=== PATIENT | female | born 1940 | race Caucasian/White ===

== ENCOUNTER → 2016-08-09 | Outpatient (CLI) | payer MEDICARE, OTHER ==
[~2016-08-09] MED LIST: ALPR.25T PO; ASP81TEC PO; ATOR80TA PO; BCL10T PO; CIPR-17 PO; CIPR1DRO2 PO; CIPR500T78 PO; COLON HEALTH PO; DICY20TA10 PO; ESCI20TA2 PO; EST45C VG; ESTR0.5T PO; HYDR-2890 PO; HYDR-3454 PO; HYDR-623 PO; HYDR118S10 PO; IBUP800T26 PO; LIPITOR; LOSA1TAB15 PO; MTP25TSR PO; NABU500T8; NITR0.4T SL; NITR100C44 PO; NTR.4SL SL; OMEG-12 PO; OXYB15TA PO; POTA8CAP9 PO; PRAS10TA6 PO; SIMV40TA4 PO; SOLI5TAB4 PO; TMZP15C PO; TRAZ150T42 PO; VLS80C
--- NOTE | 2016-08-09 18:55 | Diagnostic Imaging Report ---
INDICATION: R92.8 ABN MAMMO COMPARISON: 02/27/16. The current study was also evaluated with a Computer Aided Detection (CAD) system. FINDINGS: The medial asymmetry in the right breast appears less prominent on the current exam suggestive of summation artifact of parenchyma. Benign-appearing calcifications seen. IMPRESSION: Less prominent asymmetry along the medial aspect of the right breast is suggestive of summation artifact of parenchyma with no adverse development. Reevaluation on next screening exam due in January 2017 is suggested. ACR BI-RADS Category 2: Benign findings. Result letter will be mailed to the patient. Note: At least 10% of breast cancer is not imaged by mammography. Dictated by: Dictated on workstation # [id number]
== END | disposition home or self-care (01) ==
LOC: RAD 07:36
PROVIDERS: ATTEND Family Medicine
DX: R92.8 Other abnormal and inconclusive findings on diagnostic imaging of breast (principal)

== ENCOUNTER 2017-07-13 06:20 | Emergency (ER) | payer MEDICARE, OTHER ==
[~2017-07-13] VITALS: Ht 162.6 cm; Wt 63.0 kg
--- OUTSIDE RECORDS SUMMARY | 2017-07-13 06:24 | XMS REPORT | Continuity of Care Document ---
Author Author [employer] [facility] Address Unknown Phone Unavailable Care Team Providers Care Hall Porter Name Role Phone [employer] Unavailable Unavailable Problems Medications Allergies, Adverse Reactions, Alerts Immunizations Results Vital Signs Encounters Location Location Details Encounter Type Encounter Number Reason For Visit Attending Provider ADM Date DC Date Status Source OUTPATIENT [id number] EVE STRAUSS 10/15/2016 10/15/2016 Active [facility] OUTPATIENT [id number] Fátima VERDUGO 01/08/2017 01/08/2017 Active [facility] Michael SMART Active [facility] OP SURGERY [id number] Fátima VERDUGO Active [facility] Procedures Plan of Care Social History Assessment and Plan Family History Advance Directives Functional Status
--- OUTSIDE RECORDS SUMMARY | 2017-07-13 06:24 | XMS REPORT | Clinical Summary ---
Author Author [facility] Organization [facility] Address Unknown Phone Unavailable Care Team Providers Care Apprentice Instrument Technician Name Role Phone Sharifa Thomas MD PCP Source Comments Some departments are not documenting in the electronic medical record. If you do not see the information that you expected, contact Release of Information in the Health Information Management department at [phone] for further assistance in locating additional records.[facility] Allergies Active Allergy Reactions Severity Noted Date Comments Iodinated Contrast- Oral FLUSHING (SKIN) Low 08/29/2016 And Iv Dye Current Medications Prescription Sig. Disp. Refills Start End Date Status Date escitalopram oxalate Take 20 mg by mouth Active (LEXAPRO) 20 mg tablet daily. aspirin EC 81 mg tablet Take 81 mg by mouth Active daily. Take with food. gabapentin (NEURONTIN) Take 300 mg by mouth at Active 300 mg capsule bedtime daily. oxybutynin XL (DITROPAN Take 15 mg by mouth Active XL) 15 mg tablet daily. pantoprazole DR Take 40 mg by mouth Active (PROTONIX) 40 mg tablet daily. losartan-hydrochlorothiaz Take 0.5 Tabs by mouth Active vinayak (HYZAAR) 100-25 mg every morning. tablet atorvastatin (LIPITOR) 80 Take 80 mg by mouth at Active mg tablet bedtime daily. HYDROcodone/acetaminophen Take 1-2 Tabs by mouth 60 Tab 0 09/14/19 Active (NORCO) 5/325 mg tablet every 6 hours as needed 17 for Pain senna/docusate Take 1 Tab by mouth twice 30 Tab 0 07/14/20 Active (SENOKOT-S) 8.6/50 mg daily as needed. Take for 17 tablet constipation. Hold for loose stools. Active Problems Problem Noted Date Primary osteoarthritis of first carpometacarpal joint of right hand 2016 Overview: Added automatically from request for surgery [id number] Arthritis of right wrist 09/16/2016 Deformity of toe of right foot 08/29/2016 Social History Tobacco Use Types Packs/Day Years Used Date Former Smoker Cigarettes 10 Quit: 08/29/1996 Smokeless Tobacco: Never Used Comments: smoked 3 cigs a day Alcohol Use Drinks/Week oz/Week Comments No 0 Standard 0.0 drinks or equivalent Sex Assigned at Date Recorded Not on file Last Filed Vital Signs Vital Sign Reading Time Taken Blood Pressure 105/58 01/08/2017 2:55 PM [employer] Pulse 72 01/08/2017 2:55 PM [employer] Temperature 36.3 C (97.3 F) 09/13/2016 10:40 AM CDT Respiratory Rate - - Oxygen Saturation 98% 09/13/2016 10:45 AM CDT Inhaled Oxygen - - Concentration Weight 66.7 kg (147 lb) 01/08/2017 2:55 PM [employer] Height 162.6 cm (5' 4") 01/08/2017 2:55 PM [employer] Body Mass Index 25.23 01/08/2017 2:55 PM [employer] Plan of Treatment Health Maintenance Due Date Last Done Comments PHYSICAL (COMPREHENSIVE) 1948 EXAM PERTUSSIS VACCINE 1952 TETANUS VACCINE 1958 SHINGLES VACCINE 2001 OSTEOPOROSIS SCREENING 2006 PREVNAR/PNEUMOVAX (#1) 2006 INFLUENZA VACCINE 12/01/2017 Implants Implanted Type Area Defensive Line Coach Device Expiration Model / Identifier Date Serial / Lot Kit Instrument 100mm 1.5mm Trim-It Right: AR[employer] 05/31/2018 AR- [id number] Drill Pin Leny Bone Foot / Implanted: Qty: 1 on 09/13/2016 by N/A / Vahid Hester MD [id number] Screw Bone 30mm Acutwist Acutrak Right: [employer] [id number]-[id number] Titanium Full Thread Taper Foot / Implanted: Qty: 1 on 09/13/2016 by N/A / Vahid Hester MD N/A Results Not on filefrom Last 3 Months
[2017-07-13] MEDS ORDERED: KETOROLAC 30 MG/ML VIAL IM ONE (06:45)
--- NOTE | 2017-07-13 06:47 | ED GU-Female ---
General Chief Complaint: -Female Stated Complaint: POSS UTI Nursing Triage Note: c/o R flank pain, with urinary incontinence, urgency and retention Nursing Sepsis Screen: No Definite Risk Source: patient Exam Limitations: no limitations History of Present Illness Date Seen by Provider: July 13, 2017 Time Seen by Provider: 06:35 Initial Comments This. Ladleighton presents to the ER by private conveyance with a chief complaint that she is having dysuria for the over the past week now. She went and saw her primary care provider's office and they provided her with Bactrim which she completed a 7 day course of a couple days ago but she still feeling symptoms that she had fever yesterday 102 Fahrenheit. She was having nausea with vomiting. She has a history of kidney stones in her kidneys but she's never passed one that she is aware of. She's describing some sharp left flank pains going into her groin that she rates at about 8 out of 10. She took some Tylenol for this morning but hasn't helped yet. Records indicate she filled the Bactrim on June 20. The patient states she has a chronic amount of microscopic hematuria that she has never come up with the reason why but has had outpatient workup for. Allergies and Home Medications Allergies Coded Allergies: iodine (Verified Allergy, Unknown, 05/01/05) Uncoded Allergies: CONTRAST DYE (Allergy, Unknown, 06/09/08) Home Medications Alprazolam 0.25 Mg Tab, 0.25 MG PO Q6H PRN for ANXIETY, (Reported) NEEDED FOR ANXIETY Aspirin 81 Mg Tabec, 81 MG PO DAILY, (Reported) Hydrocodone/Acetaminophen 1 Each Tablet, 1 EACH PO Q6H PRN for PAIN Prescribed by: JOAN PETERS on 12/30/13 1127 Losartan/Hydrochlorothiazide 1 Tab Tablet, 0.5 TAB PO DAILY, (Reported) TAKE 1/2 (100-25MG) TABLET Metoprolol Succinate 25 Mg Tab, 25 MG PO DAILY Prescribed by: FER MELENDREZ on 08/28/13 1558 Nitroglycerin 0.4 Mg Tab, 0 SL PRN PRN for CHEST PAIN, (Reported) 1 TAB Q 5 MIN X 3 Oxybutynin Chloride 15 Mg Tab.osm.24, 15 MG PO DAILY, (Reported) Prasugrel Hydrochloride 10 Mg Tablet, 10 MG PO DAILY, (Reported) Simvastatin 40 Mg Tablet, 40 MG PO HS, (Reported) Trazodone Hcl 150 Mg Tablet, 75 MG PO HS, (Reported) TAKE 1/2 (150 MG) TABLET [[employer] [facility]] , 1 TAB PO DAILY, (Reported) Patient Home Medication List Home Medication List Reviewed: Yes Review of Systems Constitutional: chills, fever, malaise EENTM: No ear pain, No blurred vision Respiratory: No cough, No short of breath Cardiovascular: No palpitations, No syncope, No vascular heart diseas; other ( peripheral stents) Gastrointestinal: abdominal pain (left flank and left groin); No constipation, No diarrhea; nausea, vomiting Genitourinary: denies burning, denies discharge; dysuria, frequency, flank pain ; denies hematuria Past Rmjxuqo-Bjahfv-Nealbp Hx Patient Social History Alcohol Use: Denies Use Recreational Drug Use: No Smoking Status: Never a Smoker Recent Foreign Travel: No Contact w/Someone Who Travel: No Recent Infectious Disease Expo: No Recent Hopitalizations: No Immunizations Up To Date Date of Pneumonia Vaccine: Feb 07, 2012 Date of Influenza Vaccine: Dec 01, 2013 Past Medical History Surgeries: Yes (cervical fusion, carpal tunnel on both upper ext., umb. hernia) Hysterectomy, Orthopedic Respiratory: No Cardiac: Yes Hypertension Neurological: Yes TIA Reproductive Disorders: No Bladder Infection Gastrointestinal: No Chronic Diarrhea Musculoskeletal: Yes (OSTEOARTHRITIS, BILAT TKR) Arthritis, Chronic Back Pain Endocrine: No HEENT: No Cancer: No Psychosocial: Yes Sleep Difficulties, Anxiety, Suicide Attempts, Depression Integumentary: No Blood Disorders: No Physical Exam Vital Signs Vital Signs - First Documented 07/13/17 06:29 Temp 100.1 Pulse 86 Resp 18 B/P (MAP) 137/71 (93) Pulse Ox 95 O2 Delivery Room Air Capillary Refill : Less Than 3 Seconds General Appearance: WD/WN, no apparent distress HEENT: PERRL/EOMI, pharynx normal Neck: non-tender, supple, normal inspection Cardiovascular: normal peripheral pulses, regular rate, rhythm, no edema Respiratory: no respiratory distress, no accessory muscle use Gastrointestinal: normal bowel sounds, non tender, soft Back: normal inspection, CVA tenderness (L) Extremities: normal range of motion, non-tender, normal capillary refill Neurologic/Psychiatric: alert, normal mood/affect, oriented x 3 Skin: normal color, warm/dry Focused Exam Lactate Level 07/13/17 07:45: Lactic Acid Level 1.78 Lactic Acid Level Laboratory Tests Test 07/13/17 07:45 Lactic Acid Level 1.78 MMOL/L (0.50-2.00) Progress/Results/Core Measures Suspected Sepsis Recent Fever Within 48 Hours: Yes Infection Criteria Present: Suspected New Infection New/Unexplained Altered Menta: No Sepsis Screen: No Definite Risk SIRS Temperature:100.1 Pulse: 86 Respiratory Rate: 18 Laboratory Tests 07/13/17 07:10: White Blood Count 13.0H Blood Pressure 137 /71 Mean: 93 07/13/17 07:45: Lactic Acid Level 1.78 Laboratory Tests 07/13/17 07:10: Creatinine 1.08, Platelet Count 220, Total Bilirubin 2.0H 07/13/17 07:38: INR Comment 1.0 Results/Orders Lab Results Laboratory Tests Test 07/13/17 07:10 07/13/17 07:38 07/13/17 07:45 07/13/17 09:00 Range/Units White Blood Count 13.0 H 4.3-11.0 10^3/uL Red Blood Count 3.73 L 4.35-5.85 10^6/uL Hemoglobin 11.8 11.5-16.0 G/DL Hematocrit 36 35-52 % Mean Corpuscular Volume 95 80-99 FL Mean Corpuscular Hemoglobin 32 25-34 PG Mean Corpuscular Hemoglobin Concent 33 32-36 G/DL Red Cell Distribution Width 13.0 10.0-14.5 % Platelet Count 220 130-400 10^3/uL Mean Platelet Volume 8.9 7.4-10.4 FL Neutrophils (%) (Auto) 70 42-75 % Lymphocytes (%) (Auto) 9 L 12-44 % Monocytes (%) (Auto) 20 H 0-12 % Eosinophils (%) (Auto) 1 0-10 % Basophils (%) (Auto) 0 0-10 % Neutrophils # (Auto) 9.2 H 1.8-7.8 X 10^3 Lymphocytes # (Auto) 1.2 1.0-4.0 X 10^3 Monocytes # (Auto) 2.6 H 0.0-1.0 X 10^3 Eosinophils # (Auto) 0.1 0.0-0.3 10^3/uL Basophils # (Auto) 0.0 0.0-0.1 10^3/uL Neutrophils % (Manual) 68 % Lymphocytes % (Manual) 13 % Monocytes % (Manual) 18 % Eosinophils % (Manual) 1 % Blood Morphology Comment NORMAL Sodium Level 139 135-145 MMOL/L Potassium Level 4.3 3.6-5.0 MMOL/L Chloride Level 108 H 98-107 MMOL/L Carbon Dioxide Level 20 L 21-32 MMOL/L Anion Gap 11 5-14 MMOL/L Blood Urea Nitrogen 20 H 7-18 MG/DL Creatinine 1.08 0.60-1.30 MG/DL Estimat Glomerular Filtration Rate 49 BUN/Creatinine Ratio 19 Glucose Level 117 H 70-105 MG/DL Calcium Level 9.1 8.5-10.1 MG/DL Total Bilirubin 2.0 H 0.1-1.0 MG/DL Aspartate Amino Transf (AST/SGOT) 21 5-34 U/L Alanine Aminotransferase (ALT/SGPT) 23 0-55 U/L Alkaline Phosphatase 71 40-136 U/L Total Protein 6.6 6.4-8.2 GM/DL Albumin 4.1 3.2-4.5 GM/DL Prothrombin Time 13.5 12.2-14.7 SEC INR Comment 1.0 0.8-1.4 Activated Partial Thromboplast Time 28 24-35 SEC Lactic Acid Level 1.78 0.50-2.00 MMOL/L Urine Color YELLOW Urine Clarity VERY CLOUDY H Urine pH 6 5-9 Urine Specific Irene 1.005 L 1.016-1.022 Urine Protein 3+ H NEGATIVE Urine Glucose (UA) NEGATIVE NEGATIVE Urine Ketones NEGATIVE NEGATIVE Urine Nitrite POSITIVE H NEGATIVE Urine Bilirubin NEGATIVE NEGATIVE Urine Urobilinogen NORMAL NORMAL MG/DL Urine Leukocyte Esterase 3+ H NEGATIVE Urine RBC (Auto) 5+ H NEGATIVE Urine RBC 0-2 /HPF Urine WBC >100 H /HPF Urine Squamous Epithelial Cells 5-10 /HPF Urine Crystals NONE /LPF Urine Bacteria MODERATE H /HPF Urine Casts NONE /LPF Urine Mucus NEGATIVE /LPF Urine Culture Indicated YES My Orders Orders - IRAIDA DOBSON Ua Culture If Indicated (07/13/17 06:22) Ct Abd/Pelvis Wo(Kidney Stone) (07/13/17 06:39) Ketorolac Injection (Toradol Injection) (07/13/17 06:45) Abdomen/Kub 1view (07/13/17 06:39) Cbc With Automated Diff (07/13/17 06:47) Comprehensive Metabolic Panel (07/13/17 06:47) Iv Heplock-Insert (Order) (07/13/17 07:03) Ketorolac Injection (Toradol Injection) (07/13/17 07:15) Lactated Ringers (Lr 1000 Ml Iv Solution (07/13/17 07:22) Manual Differential (07/13/17 07:10) Lactic Acid Analyzer (07/13/17 07:36) Blood Culture (07/13/17 07:36) Protime With Inr (07/13/17 07:36) Partial Thromboplastin Time (07/13/17 07:36) Vital Signs Adult Sepsis Patie Q1H (07/13/17 07:36) Remove Rings In Anticipation O (07/13/17 07:36) Ceftriaxone Injection (Rocephin Injectio (07/13/17 07:45) Ns Iv 500 Ml (Sodium Chloride 0.9%) (07/13/17 07:43) Urine Culture (07/13/17 09:00) Medications Given in ED Current Medications Medications Dose Ordered Sig/Lizet Route Start Time Stop Time Status Last Admin Dose Admin Ceftriaxone Sodium 1000 mg/ Sodium Chloride 50 ml @ 200 mls/hr ONCE ONCE IV 07/13/17 07:45 07/13/17 07:59 DC 07/13/17 08:00 200 MLS/HR Ketorolac Tromethamine 10 mg ONCE ONCE IM 07/13/17 06:45 07/13/17 06:46 DC 07/13/17 07:18 10 MG Lactated Ringer's 1,000 ml @ 0 mls/hr Q0M ONCE IV 07/13/17 07:22 07/13/17 07:23 DC 07/13/17 07:27 1,000 MLS/HR Sodium Chloride 500 ml @ 0 mls/hr Q0M ONCE IV 07/13/17 07:43 07/13/17 07:44 DC 07/13/17 08:00 500 MLS/HR Vital Signs/I&O 07/13/17 07/13/17 06:29 08:20 Temp 100.1 100.6 Pulse 86 76 Resp 18 18 B/P (MAP) 137/71 (93) 121/57 Pulse Ox 95 99 O2 Delivery Room Air Capillary Refill : Less Than 3 Seconds Blood Pressure Mean: 93 Progress Note #1: Time: 06:52 Progress Note She does not appear dry nor she tachycardic however she does have a low grade fevers so we will just obtain some blood work and if there is an elevated white count we'll do a full sepsis workup see whether or not she'll need more aggressive interventions. For now it is highly suspicious that she has a kidney stone versus pyelonephritis less likely. Progress Note #2: Time: 07:41 Progress Note No obvious stone but there is some fullness to the left kidney which could either be from pyelonephritis versus recently passed stone. She is unable to produce urine yet. We started her with a liter and we'll give her a full 1500 cc bolus which would give her 20 mL/kg. We'll obtain some sepsis labs such as a lactate and blood cultures since she has a modest white count elevation in addition to a fever. Diagnostic Imaging Diagonstic Imaging: Xray Plain Films/CT/US/NM/MRI: abdomen (KUB) Comments VIA [facility]. [place], [place] NAME: [facility]OMEDES [facility] REC#: [id number] PT STATUS: REG ER : 1940 PHYSICIAN: IRAIDA DOBSON MD ADMIT DATE: 07/13/17/ER Draft Date of Exam:07/13/17 ABDOMEN/KUB 1VIEW INDICATION: Right-sided abdominal pain. TECHNIQUE: 2 supine views of the abdomen at 7:22 AM CORRELATION STUDY: None FINDINGS: Mild severity fecal retention. No findings to suggest bowel obstruction. No definitive abnormal intraabdominal calcification. Cholecystectomy clips are seen in the right upper quadrant. No vascular calcification is present. Rightward curvature of the lumbar spine with advanced degenerative changes about the lumbar spine as well as bilateral hip joints. Abnormal appearance about the right iliac crest could be reflective of prior trauma or surgical changes. IMPRESSION: 1. Mild to moderate fecal retention. Nonobstructing appearing bowel gas pattern. Dictated on workstation # [id number] Dict: 07/13/1711 Trans: 07/13/1717 [facility] [id number] Interpreted by: JOANA MERCEDES DO Electronically signed by: Reviewed: Reviewed by Me Diagonstic Imaging: CT Plain Films/CT/US/NM/MRI: abdomen, pelvis Comments VIA [facility]. [place], [place] NAME: DIOMEDES [facility] REC#: [id number] PT STATUS: REG ER : 1940 PHYSICIAN: IRAIDA DOBSON MD ADMIT DATE: 07/13/17/ER Draft Date of Exam:07/13/17 CT ABD/PELVIS WO(KIDNEY STONE) PROCEDURE: CT urinary tract, rule out kidney stone. TECHNIQUE: Multiple contiguous axial images were obtained through the abdomen and pelvis without the use of intravenous contrast. INDICATION: Right flank pain with urinary incontinence, urgency and retention. CORRELATION STUDY: 05/22/2015 FINDINGS: Minimal areas of atelectasis in the right lung base medially. Lung bases otherwise clear and unremarkable. Two small rounded low-density foci within the liver appearing unchanged. Gallbladder absent with clips in the fossa. Mild prominence of the extrahepatic biliary tree is present, likely owing to post cholecystectomy changes. The spleen, mildly atrophic pancreas and bilateral adrenal glands appear unremarkable. There is dense aortoiliac wall calcification, nonaneurysmal. Likely significant stenosis about the celiac axis origin. Low-density mass at the super pole of the right kidney favoring probable cyst, unchanged. A 4 mm stone in the inferior pole of the right kidney, unchanged. There are scattered calcifications along the course and adjacent to the right ureter, likely vascular in nature, appearing unchanged from prior study. No definitive ureteric calcification or evidence for obstructive uropathy. Slight prominent appearance about the left renal pelvis, unchanged. Moderate severity fecal retention throughout the colon. Rather extensive colonic diverticulosis is noted. There is no definitive inflamed diverticulum to suggest acute diverticulitis. Normal appendix is present in the right lower quadrant. No abdominal ascites or free air. Likely prior surgical changes of a right inguinal hernia repair. Urinary bladder is slightly inferior in position, could be reflective of underlying cystocele. The uterus is absent. Scoliotic curvature and advanced degenerative changes about the lumbar spine and the visualized lower thoracic spine. IMPRESSION: 1. Nonobstructing right renal stone. No evidence for obstructive uropathy. 2. Extensive diverticulosis without evidence of acute diverticulitis or appendicitis. Moderate severity fecal retention. 3. Likely slight inferior prolapse of the bladder. Dictated on workstation # [id number] Dict: 07/13/17 0713 Trans: 07/13/17 0730 [facility] [phone] Interpreted by: JOANA MERCEDES DO Electronically signed by: Reviewed: Reviewed by Me Departure Impression Primary Impression: Urinary tract infection Qualified Codes: N30.01 - Acute cystitis with hematuria Disposition: HOME, SELF-CARE Condition: Improved Departure-Patient Inst. Decision time for Depature: 09:23 Referrals: YVONNE NDIAYE DO (PCP/Family) Primary Care Physician Patient Instructions: Urinary Tract Infection, Adult (DC) Add. Discharge Instructions: Drink lots of fluids. Take the Keflex one capsule twice a day for the next 7 days. If your symptoms get worse you should return to the ER otherwise plan to follow up in the next 2-3 days with your primary care office. If you're having pain you can use Tylenol 1000 mg every 8 hours, heating pads and distraction therapy. All discharge instructions reviewed with patient and/or family. Voiced understanding. Scripts Cephalexin (Keflex) 500 Mg Capsule 500 MG PO BID for 7 Days, #14 CAP 0 Refills Prov: IRAIDA DOBSON 07/13/17 Copy Copies To 1: YVONNE NDIAYE TITUS J July 13, 2017 06:47
[2017-07-13] MEDS ORDERED: KETOROLAC 15 MG/ML VIAL IVP ONE (07:15)
--- NOTE | 2017-07-13 07:17 | Diagnostic Imaging Report ---
INDICATION: Right-sided abdominal pain. TECHNIQUE: 2 supine views of the abdomen at 7:22 AM CORRELATION STUDY: None FINDINGS: Mild severity fecal retention. No findings to suggest bowel obstruction. No definitive abnormal intraabdominal calcification. Cholecystectomy clips are seen in the right upper quadrant. No vascular calcification is present. Rightward curvature of the lumbar spine with advanced degenerative changes about the lumbar spine as well as bilateral hip joints. Abnormal appearance about the right iliac crest could be reflective of prior trauma or surgical changes. IMPRESSION: 1. Mild to moderate fecal retention. Nonobstructing appearing bowel gas pattern. Dictated by: Dictated on workstation # [id number]
[2017-07-13 07:18] LABS: BASOPHILS % (AUTO) 0 % (0-10); EOSINOPHILS # (AUTO) 0.1 10^3/uL (0.0-0.3); EOSINOPHILS % (AUTO) 1 % (0-10); HEMATOCRIT 36 % (35-52); HEMOGLOBIN 11.8 G/DL (11.5-16.0); LYMPHOCYTES # (AUTO) 1.2 X 10^3 (1.0-4.0); LYMPHOCYTES % (AUTO) 9 % (12-44); MEAN CORPUSCULAR HEMOGLOBIN 32 PG (25-34); MEAN CORPUSCULAR HGB CONC 33 G/DL (32-36); MEAN CORPUSCULAR VOLUME 95 FL (80-99); MEAN PLATELET VOLUME 8.9 FL (7.4-10.4); MONOCYTES # (AUTO) 2.6 X 10^3 (0.0-1.0); MONOCYTES % (AUTO) 20 % (0-12); NEUTROPHILS # (AUTO) 9.2 X 10^3 (1.8-7.8); NEUTROPHILS % (AUTO) 70 % (42-75); PLATELET COUNT 220 10^3/uL (130-400); RED BLOOD COUNT 3.73 10^6/uL (4.35-5.85)
[2017-07-13] MEDS ORDERED: LACTATED RINGERS 1,000 ML IV ONE (07:22)
--- NOTE | 2017-07-13 07:31 | Diagnostic Imaging Report ---
PROCEDURE: CT urinary tract, rule out kidney stone. TECHNIQUE: Multiple contiguous axial images were obtained through the abdomen and pelvis without the use of intravenous contrast. INDICATION: Right flank pain with urinary incontinence, urgency and retention. CORRELATION STUDY: 05/22/2015 FINDINGS: Minimal areas of atelectasis in the right lung base medially. Lung bases otherwise clear and unremarkable. Two small rounded low-density foci within the liver appearing unchanged. Gallbladder absent with clips in the fossa. Mild prominence of the extrahepatic biliary tree is present, likely owing to post cholecystectomy changes. The spleen, mildly atrophic pancreas and bilateral adrenal glands appear unremarkable. There is dense aortoiliac wall calcification, nonaneurysmal. Likely significant stenosis about the celiac axis origin. Low-density mass at the super pole of the right kidney favoring probable cyst, unchanged. A 4 mm stone in the inferior pole of the right kidney, unchanged. There are scattered calcifications along the course and adjacent to the right ureter, likely vascular in nature, appearing unchanged from prior study. No definitive ureteric calcification or evidence for obstructive uropathy. Slight prominent appearance about the left renal pelvis, unchanged. Moderate severity fecal retention throughout the colon. Rather extensive colonic diverticulosis is noted. There is no definitive inflamed diverticulum to suggest acute diverticulitis. Normal appendix is present in the right lower quadrant. No abdominal ascites or free air. Likely prior surgical changes of a right inguinal hernia repair. Urinary bladder is slightly inferior in position, could be reflective of underlying cystocele. The uterus is absent. Scoliotic curvature and advanced degenerative changes about the lumbar spine and the visualized lower thoracic spine. IMPRESSION: 1. Nonobstructing right renal stone. No evidence for obstructive uropathy. 2. Extensive diverticulosis without evidence of acute diverticulitis or appendicitis. Moderate severity fecal retention. 3. Likely slight inferior prolapse of the bladder. Dictated by: Dictated on workstation # [id number]
[2017-07-13 07:39] LABS: ALBUMIN 4.1 GM/DL (3.2-4.5); CALCIUM 9.1 MG/DL (8.5-10.1); CREATININE SERUM 1.08 MG/DL (0.60-1.30); POTASSIUM 4.3 MMOL/L (3.6-5.0); TOTAL PROTEIN 6.6 GM/DL (6.4-8.2)
[2017-07-13 07:43] LABS: EOSINOPHILS % (MANUAL) 1 %; LYMPHOCYTES % (MANUAL) 13 %; MONOCYTES % (MANUAL) 18 %; NEUTROPHILS % (MANUAL) 68 %; RBC MORPH NORMAL
[2017-07-13] MEDS ORDERED: NS IV 500 ML 500 ML IV ONE (07:43)
[2017-07-13] MEDS ORDERED: cefTRIAXone INJECTION 1,000 MG in NS (IVPB) 50 ML IV ONE (07:45)
[2017-07-13 08:29] LABS: PROTHROMBIN TIME PATIENT 13.5 SEC (12.2-14.7)
[2017-07-13 09:07] LABS: BILIRUBIN,URINE NEGATIVE (NEGATIVE); CLARITY,URINE VERY CLOUDY; COLOR,URINE YELLOW; GLUCOSE, URINE (UA) NEGATIVE (NEGATIVE); KETONES,URINE NEGATIVE (NEGATIVE); LEUKOCYTE ESTERASE ,URINE 3+ (NEGATIVE); NITRITE,URINE POSITIVE (NEGATIVE); PH,URINE 6 (5-9); PROTEIN,URINE 3+ (NEGATIVE); UROBILINOGEN,URINE NORMAL (NORMAL)
[2017-07-13 09:16] LABS: BACTERIA,URINE MODERATE /HPF; RBC,URINE 0-2 /HPF; WBC,URINE >100 /HPF
[2017-07-13] MEDS ORDERED: CEPH-507 PO (09:25)
[2017-07-13 09:51] VITALS: BP 120/90
[2017-07-13] MEDS ORDERED: PANT40TA3 PO ×2 (18:56)
[2017-07-13] MEDS ORDERED: ESCI20TA45 PO ×2 (18:56)
[2017-07-13] MEDS ORDERED: ASPI-983 PO ×2 (18:56)
[2017-07-13] MEDS ORDERED: ATOR80TA76 PO ×2 (18:56)
[2017-07-13] MEDS ORDERED: VALS320T14 PO ×2 (18:56)
[2017-07-13] MEDS ORDERED: OXYB15TA PO ×2 (18:56)
[2017-07-13] MEDS ORDERED: CEPH500C PO ×2 (18:56)
[2017-07-13] MEDS ORDERED: GABA-488 PO ×2 (18:56)
[2017-07-13] MEDS ORDERED: MULT-884 PO ×2 (19:00)
[2017-07-14] MEDS ORDERED: AMOX-355 PO ×2 (12:43)
[2017-07-14] MEDS ORDERED: ONDN4T PO ×2 (12:43)
== END 2017-07-13 09:51 | disposition home or self-care (01) ==
LOC: EDUNIT# 06:20 → ER 06:21
DX: N39.0 Urinary tract infection, site not specified (principal); I10 Essential (primary) hypertension; F41.9 Anxiety disorder, unspecified; F32.9 Major depressive disorder, single episode, unspecified; Z86.73 Personal history of transient ischemic attack (TIA), and cerebral infarction without residual deficits; Z91.041 Radiographic dye allergy status; Z79.82 Long term (current) use of aspirin; Z90.710 Acquired absence of both cervix and uterus; Z98.1 Arthrodesis status; Z96.653 Presence of artificial knee joint, bilateral
CPT/HCPCS: 36415; 74018; 74176; 80053; 81000; 83605; 85007; 85025; 85027; 85610; 85730; 87040; 87088; 87186; 96361; 96365; 96372

== ENCOUNTER 2017-07-13 17:04 | Observation (INO) | payer MEDICARE, OTHER ==
[~2017-07-13] VITALS: Ht 162.6 cm; Wt 63.0 kg
[~2017-07-13 17:04] MED LIST changes: +CEPH-507 PO
--- OUTSIDE RECORDS SUMMARY | 2017-07-13 17:08 | XMS REPORT | Clinical Summary ---
Author Author [facility] Organization [facility] Address Unknown Phone Unavailable Care Team Providers Care Superintendent Meter Tests Name Role Phone Sharifa Thomas MD PCP Source Comments Some departments are not documenting in the electronic medical record. 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 Pulse 72 01/08/2017 2:55 PM GREASE RACK WORKER Temperature 36.3 C (97.3 F) 09/13/2016 10:40 AM CDT Respiratory Rate - - Oxygen Saturation 98% 09/13/2016 10:45 AM CDT Inhaled Oxygen - - Concentration Weight 66.7 kg (147 lb) 01/08/2017 2:55 PM GREASE RACK WORKER Height 162.6 cm (5' 4") 01/08/2017 2:55 PM GREASE RACK WORKER Body Mass Index 25.23 01/08/2017 2:55 PM GREASE RACK WORKER Plan of Treatment Health Maintenance Due Date Last Done Comments PHYSICAL (COMPREHENSIVE) 1947 EXAM PERTUSSIS VACCINE 1952 TETANUS VACCINE 1958 SHINGLES VACCINE 2001 OSTEOPOROSIS SCREENING 2006 PREVNAR/PNEUMOVAX (#1) 2006 INFLUENZA VACCINE 12/01/2017 Implants Implanted Type Area Locomotive Inspector Device Expiration Model / Identifier Date Serial / Lot Kit Instrument 100mm 1.5mm Trim-It Right: ARTHREX 05/31/2018 AR- [id number] Drill Pin Leny Bone Foot / Implanted: Qty: 1 on 09/13/2016 by N/A / Vahid Hester MD [id number] Screw Bone 30mm Acutwist Acutrak Right: [employer] [id number] Titanium Full Thread Taper Foot / Implanted: Qty: 1 on 09/13/2016 by N/A / Vahid Hester MD N/A Results Not on filefrom Last 3 Months
--- OUTSIDE RECORDS SUMMARY | 2017-07-13 17:08 | XMS REPORT | Continuity of Care Document ---
Author Author [facility] Organization [facility] Address Unknown Phone Unavailable Care Team Providers Care Inspector Watch Assembly Name Role Phone [employer] Unavailable Unavailable Problems Medications Allergies, Adverse Reactions, Alerts Immunizations Results Vital Signs Encounters Location Location Details Encounter Type Encounter Number Reason For Visit Attending Provider ADM Date DC Date Status Source OUTPATIENT [id number] EVE STRAUSS 10/15/2016 10/15/2016 Active The [facility] OUTPATIENT [id number] Fátima VERDUGO 01/08/2017 01/08/2017 Active The [facility] Michael SMART Active The [facility] OP SURGERY [id number] Fátima VERDUGO Active The [facility] Procedures Plan of Care Social History Assessment and Plan Family History Advance Directives Functional Status
--- NOTE | 2017-07-13 17:16 | ED GU-Female ---
General Chief Complaint: -Female Stated Complaint: UTI Source: patient Exam Limitations: no limitations History of Present Illness Date Seen by Provider: July 13, 2017 Time Seen by Provider: 17:10 Initial Comments Patient presents to the ER by EMS with a chief complaint that she is still having some painful urination. She was seen earlier today by this provider in the ER and diagnosed with UTI and given Rocephin, Zofran and she said she was feeling somewhat better after the Toradol that she wanted to try going home and treating it outpatient with antibiotics. She is Daniel been treated within the last month once with a outpatient course of Bactrim for similar symptoms. She says she went home and got a nap and woke up shaking nauseated and throwing up. She had a fever of 102 so she took a couple Tylenol but didn't hold him down very long before throwing them up again. She called EMS because she is not having any family check in on her until next week. EMS gave her 4 mg Zofran on route started an IV as well as a bag of normal saline. She still having some pain in her left flank and groin. Allergies and Home Medications Allergies Coded Allergies: iodine (Verified Allergy, Unknown, 05/01/05) Uncoded Allergies: CONTRAST DYE (Allergy, Unknown, 06/09/08) Home Medications Alprazolam 0.25 Mg Tab, 0.25 MG PO Q6H PRN for ANXIETY, (Reported) NEEDED FOR ANXIETY Aspirin 81 Mg Tabec, 81 MG PO DAILY, (Reported) Cephalexin 500 Mg Capsule, 500 MG PO BID Prescribed by: IRAIDA DOBSON on 07/13/17 0925 Hydrocodone/Acetaminophen 1 Each Tablet, 1 EACH PO Q6H PRN for PAIN Prescribed by: JOAN PETERS on 12/30/13 1127 Losartan/Hydrochlorothiazide 1 Tab Tablet, 0.5 TAB PO DAILY, (Reported) TAKE 1/2 (100-25MG) TABLET Metoprolol Succinate 25 Mg Tab, 25 MG PO DAILY Prescribed by: FER MELENDREZ on 08/28/13 1558 Nitroglycerin 0.4 Mg Tab, 0 SL PRN PRN for CHEST PAIN, (Reported) 1 TAB Q 5 MIN X 3 Oxybutynin Chloride 15 Mg Tab.osm.24, 15 MG PO DAILY, (Reported) Prasugrel Hydrochloride 10 Mg Tablet, 10 MG PO DAILY, (Reported) Simvastatin 40 Mg Tablet, 40 MG PO HS, (Reported) Trazodone Hcl 150 Mg Tablet, 75 MG PO HS, (Reported) TAKE 1/2 (150 MG) TABLET [[facility]] , 1 TAB PO DAILY, (Reported) Patient Home Medication List Home Medication List Reviewed: Yes Review of Systems Constitutional: No chills, No diaphoresis, No fever, No malaise EENTM: No ear discharge, No ear pain Respiratory: No cough, No short of breath Cardiovascular: No chest pain, No Hx of Intervention, No palpitations Gastrointestinal: abdominal pain (l flank and groin); No constipation, No diarrhea; nausea, vomiting Genitourinary: burning; denies discharge; dysuria Past Ysbmdoy-Udbozk-Kspgcb Hx Patient Social History Recent Hopitalizations: No Immunizations Up To Date Date of Pneumonia Vaccine: Feb 07, 2012 Date of Influenza Vaccine: Dec 01, 2013 Past Medical History Surgeries: Yes (cervical fusion, carpal tunnel on both upper ext., umb. hernia) Hysterectomy, Orthopedic Respiratory: No Cardiac: Yes Hypertension Neurological: Yes TIA Reproductive Disorders: No Bladder Infection Gastrointestinal: No Chronic Diarrhea Musculoskeletal: Yes (OSTEOARTHRITIS, BILAT TKR) Arthritis, Chronic Back Pain Endocrine: No HEENT: No Cancer: No Psychosocial: Yes Sleep Difficulties, Anxiety, Suicide Attempts, Depression Integumentary: No Blood Disorders: No Physical Exam Vital Signs Vital Signs - First Documented 07/13/17 17:10 Temp 99.3 Pulse 81 Resp 18 B/P (MAP) 138/66 (90) Pulse Ox 96 Capillary Refill : General Appearance: WD/WN, mild distress (anxious) HEENT: normal ENT inspection, pharynx normal Neck: non-tender, supple, normal inspection Cardiovascular: normal peripheral pulses, regular rate, rhythm Respiratory: lungs clear, no respiratory distress, no accessory muscle use Gastrointestinal: normal bowel sounds, non tender, soft Neurologic/Psychiatric: alert, normal mood/affect, oriented x 3 Skin: normal color, warm/dry Progress/Results/Core Measures Suspected Sepsis SIRS Temperature: Pulse: Respiratory Rate: Laboratory Tests 07/13/17 17:15: White Blood Count 8.2 Blood Pressure / Mean: Laboratory Tests 07/13/17 17:15: Creatinine 0.97, Platelet Count 174, Total Bilirubin 1.4H Results/Orders Lab Results Laboratory Tests Test 07/13/17 17:15 Range/Units White Blood Count 8.2 4.3-11.0 10^3/uL Red Blood Count 3.35 L 4.35-5.85 10^6/uL Hemoglobin 10.4 L 11.5-16.0 G/DL Hematocrit 32 L 35-52 % Mean Corpuscular Volume 96 80-99 FL Mean Corpuscular Hemoglobin 31 25-34 PG Mean Corpuscular Hemoglobin Concent 32 32-36 G/DL Red Cell Distribution Width 13.1 10.0-14.5 % Platelet Count 174 130-400 10^3/uL Mean Platelet Volume 8.6 7.4-10.4 FL Neutrophils (%) (Auto) 76 H 42-75 % Lymphocytes (%) (Auto) 5 L 12-44 % Monocytes (%) (Auto) 18 H 0-12 % Eosinophils (%) (Auto) 1 0-10 % Basophils (%) (Auto) 0 0-10 % Neutrophils # (Auto) 6.2 1.8-7.8 X 10^3 Lymphocytes # (Auto) 0.4 L 1.0-4.0 X 10^3 Monocytes # (Auto) 1.5 H 0.0-1.0 X 10^3 Eosinophils # (Auto) 0.1 0.0-0.3 10^3/uL Basophils # (Auto) 0.0 0.0-0.1 10^3/uL Sodium Level 141 135-145 MMOL/L Potassium Level 3.9 3.6-5.0 MMOL/L Chloride Level 112 H 98-107 MMOL/L Carbon Dioxide Level 18 L 21-32 MMOL/L Anion Gap 11 5-14 MMOL/L Blood Urea Nitrogen 22 H 7-18 MG/DL Creatinine 0.97 0.60-1.30 MG/DL Estimat Glomerular Filtration Rate 56 BUN/Creatinine Ratio 23 Glucose Level 123 H 70-105 MG/DL Calcium Level 8.1 L 8.5-10.1 MG/DL Total Bilirubin 1.4 H 0.1-1.0 MG/DL Aspartate Amino Transf (AST/SGOT) 25 5-34 U/L Alanine Aminotransferase (ALT/SGPT) 24 0-55 U/L Alkaline Phosphatase 61 40-136 U/L Total Protein 5.7 L 6.4-8.2 GM/DL Albumin 3.5 3.2-4.5 GM/DL My Orders Orders - IRAIDA DOBSON Cbc With Automated Diff (07/13/17 17:14) Comprehensive Metabolic Panel (07/13/17 17:14) Ketorolac Injection (Toradol Injection) (07/13/17 17:30) Medications Given in ED Current Medications Medications Dose Ordered Sig/Lizet Route Start Time Stop Time Status Last Admin Dose Admin Ketorolac Tromethamine 10 mg ONCE ONCE IVP 07/13/17 17:30 07/13/17 17:31 DC 07/13/17 17:47 10 MG Vital Signs/I&O 07/13/17 17:10 Temp 99.3 Pulse 81 Resp 18 B/P (MAP) 138/66 (90) Pulse Ox 96 Capillary Refill : Progress Note : Time: 17:52 Progress Note Patient was seen earlier today and given an option to do inpatient versus outpatient therapy she elected to do outpatient but because of her nausea vomiting shaking she does not feel that she would tolerate this. We have given her the option to do nausea medications outpatient and she is declining would prefer inpatient management with IV fluids, IV nausea medicines and antibiotics. Departure Impression Primary Impression: Urinary tract infection Qualified Codes: N30.00 - Acute cystitis without hematuria Additional Impression: Intractable nausea and vomiting Qualified Codes: R11.2 - Nausea with vomiting, unspecified Disposition: ADMITTED INPATIENT Condition: Improved Admissions Decision to Admit Reason: Admit from ER (General) Decision to Admit/Date: July 13, 2017 Time/Decision to Admit Time: 18:00 Departure-Patient Inst. Referrals: YVONNE NDIAYE DO (PCP/Family) Primary Care Physician Copy Copies To 1: VYONNE NDIAYE TITUS J July 13, 2017 17:16
[2017-07-13 17:22] LABS: BASOPHILS % (AUTO) 0 % (0-10); EOSINOPHILS # (AUTO) 0.1 10^3/uL (0.0-0.3); EOSINOPHILS % (AUTO) 1 % (0-10); HEMATOCRIT 32 % (35-52); HEMOGLOBIN 10.4 G/DL (11.5-16.0); LYMPHOCYTES # (AUTO) 0.4 X 10^3 (1.0-4.0); LYMPHOCYTES % (AUTO) 5 % (12-44); MEAN CORPUSCULAR HEMOGLOBIN 31 PG (25-34); MEAN CORPUSCULAR HGB CONC 32 G/DL (32-36); MEAN CORPUSCULAR VOLUME 96 FL (80-99); MEAN PLATELET VOLUME 8.6 FL (7.4-10.4); MONOCYTES # (AUTO) 1.5 X 10^3 (0.0-1.0); MONOCYTES % (AUTO) 18 % (0-12); NEUTROPHILS # (AUTO) 6.2 X 10^3 (1.8-7.8); NEUTROPHILS % (AUTO) 76 % (42-75); PLATELET COUNT 174 10^3/uL (130-400); RED BLOOD COUNT 3.35 10^6/uL (4.35-5.85); RED CELL DISTRIBUTION WIDTH 13.1 % (10.0-14.5); WHITE BLOOD COUNT 8.2 10^3/uL (4.3-11.0)
[2017-07-13] MEDS ORDERED: KETOROLAC 30 MG/ML VIAL IVP ONE (17:30)
[2017-07-13 17:40] LABS: ALBUMIN 3.5 GM/DL (3.2-4.5); BILIRUBIN,TOTAL 1.4 MG/DL (0.1-1.0); CALCIUM 8.1 MG/DL (8.5-10.1); CREATININE SERUM 0.97 MG/DL (0.60-1.30); POTASSIUM 3.9 MMOL/L (3.6-5.0); TOTAL PROTEIN 5.7 GM/DL (6.4-8.2)
--- OUTSIDE RECORDS SUMMARY | 2017-07-13 18:04 | XMS REPORT | Continuity of Care Document ---
Author Author [facility] Organization [facility] Address Unknown Phone Unavailable Care Team Providers Care Flow Coordinator Name Role Phone [employer] Unavailable Unavailable Problems Medications Allergies, Adverse Reactions, Alerts Immunizations Results Vital Signs Encounters Location Location Details Encounter Type Encounter Number Reason For Visit Attending Provider ADM Date DC Date Status Source OUTPATIENT [id number] EVE STRAUSS 10/15/2016 10/15/2016 Active [facility] OUTPATIENT [id number] Fátima VERDUGO 01/08/2017 01/08/2017 Active [facility] Michael SMART Active The [facility] OP SURGERY [id number] Fátima VERDUGO Active The [facility] Procedures Plan of Care Social History Assessment and Plan Family History Advance Directives Functional Status
--- OUTSIDE RECORDS SUMMARY | 2017-07-13 18:04 | XMS REPORT | Clinical Summary ---
Author Author [facility] Organization [facility] Address Unknown Phone Unavailable Care Team Providers Care Senior Supply Chain Analyst Name Role Phone Sharifa Thomas MD PCP Source Comments Some departments are not documenting in the electronic medical record. 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 Pulse 72 01/08/2017 2:55 PM MOTOR BLOCK MECHANIC Temperature 36.3 C (97.3 F) 09/13/2016 10:40 AM CDT Respiratory Rate - - Oxygen Saturation 98% 09/13/2016 10:45 AM CDT Inhaled Oxygen - - Concentration Weight 66.7 kg (147 lb) 01/08/2017 2:55 PM MOTOR BLOCK MECHANIC Height 162.6 cm (5' 4") 01/08/2017 2:55 PM MOTOR BLOCK MECHANIC Body Mass Index 25.23 01/08/2017 2:55 PM MOTOR BLOCK MECHANIC Plan of Treatment Health Maintenance Due Date Last Done Comments PHYSICAL (COMPREHENSIVE) 1948 EXAM PERTUSSIS VACCINE 1952 TETANUS VACCINE 1958 SHINGLES VACCINE 2001 OSTEOPOROSIS SCREENING 2006 PREVNAR/PNEUMOVAX (#1) 2006 INFLUENZA VACCINE 12/01/2017 Implants Implanted Type Area Chemicals Fermentation Operator Device Expiration Model / Identifier Date Serial / Lot Kit Instrument 100mm 1.5mm Trim-It Right: AR[employer]X 05/31/2018 AR- [id number] Drill Pin Leny Bone Foot / Implanted: Qty: 1 on 09/13/2016 by N/A / Vahid Hester MD [id number] Screw Bone 30mm Acutwist Acutrak Right: [employer] AI-0030-S Titanium Full Thread Taper Foot / Implanted: Qty: 1 on 09/13/2016 by N/A / Vahid Hester MD N/A Results Not on filefrom Last 3 Months
[2017-07-13] MEDS ORDERED: fentaNYL INJECTION 100 MCG/2 ML AMP ONE (18:44)
[2017-07-13 18:45] VITALS: BP 128/63
[2017-07-13] MEDS ORDERED: ACETAMINOPHEN 500 MG TAB (TYLENOL) ONE (18:45)
[2017-07-13] MEDS ORDERED: CEPH500C PO ×2 (18:56)
[2017-07-13] MEDS ORDERED: ATOR80TA76 PO ×2 (18:56)
[2017-07-13] MEDS ORDERED: ESCI20TA45 PO ×2 (18:56)
[2017-07-13] MEDS ORDERED: ASPI-983 PO ×2 (18:56)
[2017-07-13] MEDS ORDERED: OXYB15TA PO ×2 (18:56)
[2017-07-13] MEDS ORDERED: VALS320T14 PO ×2 (18:56)
[2017-07-13] MEDS ORDERED: PANT40TA3 PO ×2 (18:56)
[2017-07-13] MEDS ORDERED: GABA-488 PO ×2 (18:56)
[2017-07-13] MEDS ORDERED: MULT-884 PO ×2 (19:00)
[2017-07-13 19:50] VITALS: BP 104/54
[2017-07-13] MEDS ORDERED: ONDANSETRON 4 MG/2 ML (SDV) Z0FRAN ONE (19:55)
[2017-07-13] MEDS ORDERED: ONDANSETRON 4 MG/2 ML (SDV) Z0FRAN IVP PRN (20:00)
[2017-07-13] MEDS ORDERED: fentaNYL INJECTION 100 MCG/2 ML AMP IV PRN (20:30)
[2017-07-13] MEDS ORDERED: CATHETER FLUSH 10 ML SYR IV PRN (20:30)
[2017-07-13] MEDS ORDERED: ACETAMINOPHEN 500 MG TAB (TYLENOL) PO PRN (20:30)
[2017-07-13] MEDS ORDERED: KETOROLAC 15 MG/ML VIAL IV PRN (20:30)
[2017-07-13] MEDS ORDERED: ALPRAZolam 0.5 MG (XANAX) TAB PO PRN (20:30)
[2017-07-13] MEDS: CATHETER FLUSH 10 ML SYR IV SCH (21:58)
[2017-07-14 00:05] VITALS: BP 110/53
[2017-07-14 03:50] VITALS: BP 110/64
[2017-07-14] MEDS: CATHETER FLUSH 10 ML SYR IV SCH ×2 (06:06→14:33)
[2017-07-14] MEDS ORDERED: cefTRIAXone 1 GM/NS 50 ML IVPB IV SCH ×2 (07:00)
[2017-07-14 07:44] LABS: BASOPHILS % (AUTO) 0 % (0-10); EOSINOPHILS # (AUTO) 0.1 10^3/uL (0.0-0.3); EOSINOPHILS % (AUTO) 1 % (0-10); HEMATOCRIT 34 % (35-52); HEMOGLOBIN 10.6 G/DL (11.5-16.0); LYMPHOCYTES # (AUTO) 1.5 X 10^3 (1.0-4.0); LYMPHOCYTES % (AUTO) 18 % (12-44); MEAN CORPUSCULAR HEMOGLOBIN 31 PG (25-34); MEAN CORPUSCULAR HGB CONC 32 G/DL (32-36); MEAN CORPUSCULAR VOLUME 98 FL (80-99); MEAN PLATELET VOLUME 9.4 FL (7.4-10.4); MONOCYTES # (AUTO) 1.4 X 10^3 (0.0-1.0); MONOCYTES % (AUTO) 16 % (0-12); NEUTROPHILS # (AUTO) 5.7 X 10^3 (1.8-7.8); NEUTROPHILS % (AUTO) 65 % (42-75); PLATELET COUNT 198 10^3/uL (130-400); RED BLOOD COUNT 3.41 10^6/uL (4.35-5.85); RED CELL DISTRIBUTION WIDTH 13.4 % (10.0-14.5); WHITE BLOOD COUNT 8.7 10^3/uL (4.3-11.0)
[2017-07-14 07:58] LABS: BUN/CREATININE RATIO 23; CALCIUM 8.4 MG/DL (8.5-10.1); CARBON DIOXIDE 23 MMOL/L (21-32); CHLORIDE 113 MMOL/L (98-107); GFR ESTIMATED > 60; GLUCOSE 87 MG/DL (70-105); POTASSIUM 4.1 MMOL/L (3.6-5.0); SODIUM 143 MMOL/L (135-145)
[2017-07-14 08:00] VITALS: BP 130/53
[2017-07-14 12:00] VITALS: BP 128/78
--- NOTE | 2017-07-14 12:37 | Short Stay Summary ---
History of Present Illness History of Present Illness Reason for visit/HPI This is a 77 year old female who was seen in the emergency room on 07/13/17 with UTI. She was given IV rocephin, zofran and toradol and was feeling better so she was discharged to home. However, she then spiked a fever and had nausea and vomiting so she returned back to the emergency room and it was decided to admit her for IVFs, IV antiemetics and further IV antibiotics. Date of Admission July 13, 2017 at 6:00 pm Date of Discharge Time Seen by Provider: 12:38 Attending Physician Vivian Nichols DO Admitting Physician Sharifa Thomas DO Consult Allergies and Home Medications Allergies Coded Allergies: iodine (Verified Allergy, Unknown, 05/01/05) Uncoded Allergies: CONTRAST DYE (Allergy, Unknown, 06/09/08) Home Medications Aspirin 81 Mg Tablet.dr, 81 MG PO DAILY, (Reported) Atorvastatin Calcium 80 Mg Tablet, 80 MG PO HS, (Reported) Cephalexin 500 Mg Capsule, 500 MG PO BID, (Reported) FILLED 07/13/17 #14 FOR A 7 DAY THERAPY / HAS NOT PICKED UP Escitalopram Oxalate 20 Mg Tablet, 20 MG PO DAILY, (Reported) Gabapentin 300 Mg Capsule, 300 MG PO HS, (Reported) Multivits,Ca,Minerals/Iron/FA 1 Each Tablet, 1 TAB PO DAILY, (Reported) Oxybutynin Chloride 15 Mg Tab.er.24, 15 MG PO HS, (Reported) Pantoprazole Sodium 40 Mg Tablet.dr, 40 MG PO DAILY, (Reported) Valsartan 320 Mg Tablet, 320 MG PO DAILY, (Reported) Patient Home Medication List Home Medication List Reviewed: Yes Past Tojrhov-Lwoouy-Cjbdrb Hx Patient Social History Marrital Status: Employed/Student: employed Alcohol Use: Denies Use Recreational Drug Use: No Smoking Status: Former Smoker Physical Abuse Screen: No Sexual Abuse: No Recent Foreign Travel: No Contact w/other who traveled: No Recent Hopitalizations: No Recent Infectious Disease Expo: No Immunizations Up To Date Date of Pneumonia Vaccine: Feb 07, 2012 Date of Influenza Vaccine: Dec 01, 2013 Surgeries Yes (cervical fusion, carpal tunnel on both upper ext., umb. hernia) Hysterectomy, Orthopedic Respiratory No Cardiovascular Yes Hypertension Neurological Yes TIA Reproductive System : No Hx Reproductive Disorders: No Genitourinary Bladder Infection Gastrointestinal No Chronic Diarrhea Musculoskeletal Yes (OSTEOARTHRITIS, BILAT TKR) Arthritis, Chronic Back Pain Endocrine History of Endocrine Disorders: No HEENT History of HEENT Disorders: No Cancer No Psychosocial History of Psychiatric Problem: Yes Behavioral Health Disorders: Sleep Difficulties, Anxiety, Suicide Attempts, Depression Integumentary History of Skin or Integumenta: No Blood Transfusions History of Blood Disorders: No Constitutional: fever, weakness EENTM: No see HPI, No no symptoms reported, No ear discharge, No hearing loss, No ear pain, No blurred vision, No double vision, No eye pain, No tearing, No vision loss, No dental problems, No hoarseness, No mouth pain, No mouth swelling , No epistaxis, No nose congestion, No nose pain, No throat pain, No throat swelling, No other Respiratory: No no symptoms reported, No see HPI, No cough, No dyspnea on exertion, No hemoptysis, No orthopnea, No phlegm, No short of breath, No stridor , No wheezing, No other Cardiovascular: No no symptoms reported, No see HPI, No chest pain, No edema, No Hx of Intervention, No palpitations, No syncope, No vascular heart diseas, No other Gastrointestinal: nausea, vomiting Genitourinary: decreased output, dysuria Musculoskeletal: back pain Skin: No no symptoms reported, No see HPI, No change in color, No change in hair/nails, No dryness, No hx of skin cancer, No lesions, No lumps, No pruritus , No rash, No other Psychiatric/Neurological: Weakness Physical Exam Vital Signs Vital Signs - First Documented 07/13/17 07/13/17 17:10 18:45 Temp 99.3 Pulse 81 Resp 18 B/P (MAP) 138/66 (90) Pulse Ox 96 O2 Delivery Room Air Capillary Refill : Less Than 3 Seconds General Appearance: No Apparent Distress HEENT: Pharynx Normal Neck: Supple Respiratory: Lungs Clear Cardiovascular: Regular Rate, Rhythm Gastrointestinal: Normal Bowel Sounds, Non Tender, Soft Rectal: Deferred Back: No CVA Tenderness Extremity: Non Tender, No Calf Tenderness, No Pedal Edema Neurologic/Psychiatric: Alert, Oriented x3 Skin: Normal Color, Warm/Dry Comments Laboratory Tests 07/13/17 17:15: White Blood Count 8.2, Red Blood Count 3.35L, Hemoglobin 10.4L, Hematocrit 32L, Mean Corpuscular Volume 96, Mean Corpuscular Hemoglobin 31, Mean Corpuscular Hemoglobin Concent 32, Red Cell Distribution Width 13.1, Platelet Count 174, Mean Platelet Volume 8.6, Neutrophils (%) (Auto) 76H, Lymphocytes (%) (Auto) 5L , Monocytes (%) (Auto) 18H, Eosinophils (%) (Auto) 1, Basophils (%) (Auto) 0, Neutrophils # (Auto) 6.2, Lymphocytes # (Auto) 0.4L, Monocytes # (Auto) 1.5H, Eosinophils # (Auto) 0.1, Basophils # (Auto) 0.0, Sodium Level 141, Potassium Level 3.9, Chloride Level 112H, Carbon Dioxide Level 18L, Anion Gap 11, Blood Urea Nitrogen 22H, Creatinine 0.97, Estimat Glomerular Filtration Rate 56, BUN/ Creatinine Ratio 23, Glucose Level 123H, Calcium Level 8.1L, Total Bilirubin 1.4H, Aspartate Amino Transf (AST/SGOT) 25, Alanine Aminotransferase (ALT/SGPT) 24, Alkaline Phosphatase 61, Total Protein 5.7L, Albumin 3.5 07/14/17 06:09: White Blood Count 8.7, Red Blood Count 3.41L, Hemoglobin 10.6L, Hematocrit 34L, Mean Corpuscular Volume 98, Mean Corpuscular Hemoglobin 31, Mean Corpuscular Hemoglobin Concent 32, Red Cell Distribution Width 13.4, Platelet Count 198, Mean Platelet Volume 9.4, Neutrophils (%) (Auto) 65, Lymphocytes (%) (Auto) 18, Monocytes (%) (Auto) 16H, Eosinophils (%) (Auto) 1, Basophils (%) (Auto) 0, Neutrophils # (Auto) 5.7, Lymphocytes # (Auto) 1.5, Monocytes # (Auto) 1.4H, Eosinophils # (Auto) 0.1, Basophils # (Auto) 0.0, Sodium Level 143, Potassium Level 4.1, Chloride Level 113H, Carbon Dioxide Level 23, Anion Gap 7, Blood Urea Nitrogen 18, Creatinine 0.80, Estimat Glomerular Filtration Rate > 60, BUN/ Creatinine Ratio 23, Glucose Level 87, Calcium Level 8.4L Clinical Quality Measures DVT/VTE Risk/Contraindication: Risk Factor Score Per Nursin RFS Level Per Nursing on Admit: 1=Low/No VTE PPX Short Stay Diagnosis Discharge Diagnosis-Short Stay Final Discharge Diagnosis: 1. Acute UTI with E. coli and Lactobacillus and failed outpatient treatment 2. Intractable N/V--resolved 3. History of recurrent UTI--follows with urology 4. Hypertension--stable Conclusion Labs Laboratory Tests 07/13/17 17:15: White Blood Count 8.2, Red Blood Count 3.35L, Hemoglobin 10.4L, Hematocrit 32L, Mean Corpuscular Volume 96, Mean Corpuscular Hemoglobin 31, Mean Corpuscular Hemoglobin Concent 32, Red Cell Distribution Width 13.1, Platelet Count 174, Mean Platelet Volume 8.6, Neutrophils (%) (Auto) 76H, Lymphocytes (%) (Auto) 5L , Monocytes (%) (Auto) 18H, Eosinophils (%) (Auto) 1, Basophils (%) (Auto) 0, Neutrophils # (Auto) 6.2, Lymphocytes # (Auto) 0.4L, Monocytes # (Auto) 1.5H, Eosinophils # (Auto) 0.1, Basophils # (Auto) 0.0, Sodium Level 141, Potassium Level 3.9, Chloride Level 112H, Carbon Dioxide Level 18L, Anion Gap 11, Blood Urea Nitrogen 22H, Creatinine 0.97, Estimat Glomerular Filtration Rate 56, BUN/ Creatinine Ratio 23, Glucose Level 123H, Calcium Level 8.1L, Total Bilirubin 1.4H, Aspartate Amino Transf (AST/SGOT) 25, Alanine Aminotransferase (ALT/SGPT) 24, Alkaline Phosphatase 61, Total Protein 5.7L, Albumin 3.5 07/14/17 06:09: White Blood Count 8.7, Red Blood Count 3.41L, Hemoglobin 10.6L, Hematocrit 34L, Mean Corpuscular Volume 98, Mean Corpuscular Hemoglobin 31, Mean Corpuscular Hemoglobin Concent 32, Red Cell Distribution Width 13.4, Platelet Count 198, Mean Platelet Volume 9.4, Neutrophils (%) (Auto) 65, Lymphocytes (%) (Auto) 18, Monocytes (%) (Auto) 16H, Eosinophils (%) (Auto) 1, Basophils (%) (Auto) 0, Neutrophils # (Auto) 5.7, Lymphocytes # (Auto) 1.5, Monocytes # (Auto) 1.4H, Eosinophils # (Auto) 0.1, Basophils # (Auto) 0.0, Sodium Level 143, Potassium Level 4.1, Chloride Level 113H, Carbon Dioxide Level 23, Anion Gap 7, Blood Urea Nitrogen 18, Creatinine 0.80, Estimat Glomerular Filtration Rate > 60, BUN/ Creatinine Ratio 23, Glucose Level 87, Calcium Level 8.4L Conclusion/Plan This is a 77 year old female who was seen in the emergency room on 07/13/17 with UTI. She was given IV rocephin, zofran and toradol and was feeling better so she was discharged to home. However, she then spiked a fever and had nausea and vomiting so she returned back to the emergency room and it was decided to admit her for IVFs, IV antiemetics and further IV antibiotics. She was admitted to the medical floor and given IVFs and IV rocephin. She had IV zofran prn. By the following morning she was afebrile, she had no further N/V and she had no further pain. She had good urine output and wanted to be discharged home. Her preliminary urine culture was growing out E. coli and Lactobacillus. She will be sent home on oral antibiotics and is instructed on oral rehydration and not to travel and be out in the heat at this time. SHARIFA THOMAS DO July 14, 2017 12:37 pm
[2017-07-14] MEDS ORDERED: ONDN4T PO ×2 (12:43)
[2017-07-14] MEDS ORDERED: AMOX-355 PO ×2 (12:43)
--- NOTE | 2017-07-14 12:45 | Discharge Inst-Simple/Standard ---
Discharge Inst-Standard Discharge Medications New, Converted or Re-Newed RX: Transmitted to Pharmacy Patient Instructions/Follow Up Plan of Care/Instructions/FU: Fwup 1 week Activity as Tolerated: Yes Discharge Diet: No Restrictions YVONNE NDIAYE DO July 14, 2017 12:45 pm
[2017-07-14 14:25] VITALS: BP 128/78
[2017-07-14] MEDS ORDERED: OXYBUTYNIN (DITROPAN) 5 MG TAB PO SCH (21:00)
[2017-07-14] MEDS ORDERED: NON-FORMULARY MEDICATION 1 EA EA (Oxybutynin Chloride (Oxybutynin Chloride ER) 15 MG) PO SCH (21:00)
[2017-07-15] MEDS ORDERED: PANTOPRAZOLE 40 MG (PROTONIX) TAB PO SCH (07:00)
[2017-07-15] MEDS ORDERED: VALSARTAN 160 MG (DIOVAN) TABLET PO SCH (09:00)
[2017-07-15] MEDS ORDERED: NON-FORMULARY MEDICATION 1 EA EA (Valsartan 320 MG) PO SCH (09:00)
[2017-07-15] MEDS ORDERED: NON-FORMULARY MEDICATION 1 EA EA (Escitalopram Oxalate 20 MG) PO SCH (09:00)
== END 2017-07-14 14:20 | disposition home or self-care (01) ==
LOC: EDUNIT# 17:04 → ER 17:05 → 4TH 18:00 → UNDOADMOB 18:00 → 4TH 18:45 → UNDODISOB 07-14 14:25
PROVIDERS: ADMIT Internal Medicine; ATTEND Internal Medicine
DX: N39.0 Urinary tract infection, site not specified (principal); R11.2 Nausea with vomiting, unspecified; I10 Essential (primary) hypertension; B96.20 Unspecified Escherichia coli [E. coli] as the cause of diseases classified elsewhere; F41.9 Anxiety disorder, unspecified; F32.9 Major depressive disorder, single episode, unspecified; Z79.82 Long term (current) use of aspirin; Z79.899 Other long term (current) drug therapy
CPT/HCPCS: 36415; 80048; 80053; 85025; 85027; 96374; G0378

== ENCOUNTER → 2017-08-18 | Outpatient (CLI) | payer MEDICARE, OTHER ==
[~2017-08-18] MED LIST changes: +AMOX-355 PO; +ASPI-983 PO; +ATOR80TA76 PO; +CEPH500C PO; +ESCI20TA45 PO; +GABA-488 PO; +MULT-884 PO; +ONDN4T PO; +PANT40TA3 PO; +VALS320T14 PO
--- NOTE | 2017-08-18 15:13 | Diagnostic Imaging Report ---
INDICATION: Routine screening. COMPARISON: 02/07/2016 and 02/16/2015. TECHNIQUE: 2D and 3D bilateral screening mammography was performed with CAD. FINDINGS: Both breasts remain heterogeneously dense, limiting the sensitivity of mammography. No mass or malignant appearing microcalcifications are seen. The axillae are unremarkable. IMPRESSION: No mammographic features suspicious for malignancy are identified. ACR BI-RADS Category 1: Negative. Result letter will be mailed to the patient. Note: At least 10% of breast cancer is not imaged by mammography. Dictated by: Dictated on workstation # [id number]
== END ==
LOC: RAD 13:21
PROVIDERS: ATTEND Family Medicine
DX: Z12.31 Encounter for screening mammogram for malignant neoplasm of breast (principal)
CPT/HCPCS: 77067

== ENCOUNTER → 2017-12-31 | Outpatient (CLI) | payer MEDICARE, OTHER ==
[~2017-12-31] MED LIST changes: -VALS320T14 PO; +VALS320T15 PO
--- NOTE | 2017-12-31 17:30 | Diagnostic Imaging Report ---
PROCEDURE: MRI right lower extremity without contrast. TECHNIQUE: Multiplanar, multisequence non contrast-enhanced MRI of the right lower extremity was accomplished. INDICATION: Right foot pain. COMPARISON: There are no prior studies available for comparison. FINDINGS: The T1 axial short axis series shows concentric thickening of the soft tissues about the second metatarsophalangeal joint. This may be secondary to a combination of chronic and active inflammation. There is some mixed signal within the head of the second metatarsal. I suspect that this is more likely due to degenerative disease than to osteomyelitis. Even so, a nuclear medicine bone scan would be recommended for further evaluation. There is a suggestion of a tubular low signal defect within the shaft of the second metatarsal and the proximal phalanx. This may be related to a prior orthopedic pin placement. Correlation with the patient's history would be recommended. There are other degenerative changes involving the phalanges, but these are not nearly as severe as seen about the second metatarsophalangeal joint. There is diminished signal within the bases of the second, third, and fourth metatarsals and the second and third cuneiforms on the T1 series. This could be due to degenerative disease alone. It would be less likely that there is an element of osteomyelitis present. This area could also be further evaluated by the nuclear medicine study. There is no soft tissue mass or abscess visualized. The major ligaments and tendons where visualized are intact. IMPRESSION: 1. There is concentric thickening of the soft tissues about the head of the second metatarsophalangeal joint. Most likely, this represents inflammation either chronic, acute, or a combination of both. There is also a question of osteomyelitis involving the head of the second metatarsal and, to a lesser extent, the bases of the second, third, and fourth metatarsals and the second cuneiform. A nuclear medicine bone scan would be recommended for further study. 2. There is no acute bony abnormality appreciated otherwise. 3. There is no soft tissue mass or abscess evident. Dictated by: Dictated on workstation # [id number]
== END ==
LOC: RAD 15:32
PROVIDERS: ATTEND Orthopaedic Surgery
DX: M79.89 Other specified soft tissue disorders (principal); M79.671 Pain in right foot

== ENCOUNTER → 2018-08-19 | Outpatient (CLI) | payer MEDICARE, OTHER ==
--- NOTE | 2018-08-19 19:03 | Diagnostic Imaging Report ---
INDICATION: Routine screening. Comparison is made with prior mammograms from 08/18/2017 and 02/27/2016. 2-D and 3-D bilateral screening mammography was performed. The current study was also evaluated with a Computer Aided Detection (CAD) system. 3-D tomosynthesis was also performed and reviewed. FINDINGS: Both breasts are heterogeneously dense, limiting the sensitivity of mammography. The overall parenchymal pattern is stable. No mass or malignant-appearing microcalcifications are seen. The axillae are unremarkable. IMPRESSION: No mammographic features suspicious for malignancy are identified. ACR BI-RADS Category 1: Negative. Result letter will be mailed to the patient. Note: At least 10% of breast cancer is not imaged by mammography. Dictated by: Dictated on workstation # [id number]
== END ==
LOC: RAD 10:00
PROVIDERS: ATTEND Family Medicine
DX: Z12.31 Encounter for screening mammogram for malignant neoplasm of breast (principal)
CPT/HCPCS: 77067

== ENCOUNTER → 2018-09-14 | Outpatient (CLI) | payer MEDICARE, OTHER ==
--- NOTE | 2018-09-16 10:23 | Diagnostic Imaging Report ---
PROCEDURE: US Bilateral lower extremity arterial. TECHNIQUE: Multiple real-time grayscale images are obtained through both lower extremity arterial systems with color Doppler imaging and color Doppler spectral analysis. INDICATION: History of right popliteal artery stent. Study is performed for checkup. Primarily biphasic waveforms in both lower extremity arterial systems are seen apart from a monophasic waveforms in the right dorsalis pedis. Velocities are symmetric bilaterally. No velocity elevation or stenosis is seen. There is no occlusion. The right popliteal artery stent is patent. IMPRESSION: Unremarkable bilateral lower extremity arterial Doppler. Dictated by: Dictated on workstation # [id number]
== END ==
LOC: RAD 10:49
PROVIDERS: ATTEND Internal Medicine Interventional Cardiology
DX: I73.9 Peripheral vascular disease, unspecified (principal); I08.0 Rheumatic disorders of both mitral and aortic valves; I10 Essential (primary) hypertension; E78.2 Mixed hyperlipidemia; I25.10 Atherosclerotic heart disease of native coronary artery without angina pectoris; Z86.73 Personal history of transient ischemic attack (TIA), and cerebral infarction without residual deficits; Z95.820 Peripheral vascular angioplasty status with implants and grafts
CPT/HCPCS: 93306; 93922; 93925

== ENCOUNTER → 2019-01-01 | Outpatient (CLI) | payer MEDICARE, OTHER ==
[~2019-01-01] MED LIST changes: +OXYB15TA18 PO
--- NOTE | 2019-01-01 14:42 | Diagnostic Imaging Report ---
PROCEDURE: CT abdomen and pelvis without contrast. TECHNIQUE: Multiple contiguous axial images were obtained through the abdomen and pelvis without the use of intravenous contrast. Auto Exposure Controls were utilized during the CT exam to meet ALARA standards for radiation dose reduction. INDICATION: Hematuria and urinary tract infection for one week. COMPARISON: Correlation is made with prior CT from 07/13/2017. FINDINGS: The lung bases are clear. Small circumscribed low-density left lobe of the liver is stable and most suggestive of a cyst. No other liver mass is identified. The gallbladder is surgically absent. No biliary ductal dilatation is seen. The pancreas and spleen are unremarkable. No adrenal mass is detected. Right kidney does contain tiny nonobstructing calculus in the mid to lower aspect. No hydronephrosis is seen. No definite ureteral calculi are detected. Aorta and iliac vessels are heavily calcified but non-aneurysmal. The small and large bowel loops are normal caliber. There is no obstruction. There is extensive diverticulosis of the sigmoid colon but no evidence of acute diverticulitis. There is moderate artifact through the pelvis from patient's right hip prosthesis. This does obscure the bladder. Bony structures are nonacute. There is no ascites. IMPRESSION: 1. Tiny nonobstructing right renal calculus. No ureteral calculi or hydronephrosis is seen. 2. Marked sigmoid diverticulosis without evidence of acute diverticulitis. Dictated by: Dictated on workstation # [id number]
== END ==
LOC: RAD 13:55
PROVIDERS: ATTEND Internal Medicine Nephrology
DX: N18.2 Chronic kidney disease, stage 2 (mild) (principal); N39.0 Urinary tract infection, site not specified; K57.30 Diverticulosis of large intestine without perforation or abscess without bleeding; R31.9 Hematuria, unspecified; Z90.49 Acquired absence of other specified parts of digestive tract
CPT/HCPCS: 74176

== ENCOUNTER 2019-01-05 15:48 | Outpatient (RCR) | payer MEDICARE, OTHER ==
[2019-01-06 12:26] LABS: ALBUMIN 4.1 GM/DL (3.2-4.5); CALCIUM 9.1 MG/DL (8.5-10.1); CREATININE SERUM 0.91 MG/DL (0.60-1.30); PHOSPHORUS 3.6 MG/DL (2.3-4.7); POTASSIUM 4.1 MMOL/L (3.6-5.0); URIC ACID 4.3 MG/DL (2.6-7.2)
== END 2019-04-23 | disposition home or self-care (01) ==
LOC: LAB 15:48 → EDSTATUS 04-23 21:37
PROVIDERS: ATTEND Internal Medicine Nephrology
DX: I12.9 Hypertensive chronic kidney disease with stage 1 through stage 4 chronic kidney disease, or unspecified chronic kidney disease (principal); N18.2 Chronic kidney disease, stage 2 (mild); N13.2 Hydronephrosis with renal and ureteral calculous obstruction; N13.1 Hydronephrosis with ureteral stricture, not elsewhere classified

== ENCOUNTER → 2019-08-05 | Outpatient (CLI) | payer MEDICARE, OTHER ==
[~2019-08-05] MED LIST changes: -OXYB15TA18 PO; +OXYB15TA19 PO
--- NOTE | 2019-08-05 12:40 | Diagnostic Imaging Report ---
INDICATION: A 2-D and 3-D digital screening with CAD. COMPARISON: 08/2018, 08/2017 and 08/2016 FINDINGS: scattered fibroglandular densities in the breast unchanged. No dominant mass, spiculated lesion or suspicious appearing calcifications. Skin, nipples and axilla within normal limits. IMPRESSION: Stable negative mammogram. BI-RADS Category 1 ACR BI-RADS Category 1: Negative. Result letter will be mailed to the patient. Note: At least 10% of breast cancer is not imaged by mammography. Dictated by: Dictated on workstation # [id number]
== END ==
LOC: RAD 10:25
PROVIDERS: ATTEND Family Medicine
DX: Z12.31 Encounter for screening mammogram for malignant neoplasm of breast (principal)
CPT/HCPCS: 77063; 77067

== ENCOUNTER 2019-09-16 07:20 | Outpatient (RCR) | payer MEDICARE, OTHER ==
[~2019-09-16] VITALS: Ht 160 cm; Wt 65.5 kg
[~2019-09-16 07:20] MED LIST changes: +CHOL200078 PO; +GABA300C PO; +NITR50CA PO; +OLME40TA18 PO; +OXYB10TA29 PO; +TRAM50TA3 PO
== END 2019-09-16 10:35 | disposition home or self-care (01) ==
LOC: PREOP 07:20
PROVIDERS: ATTEND Surgery
DX: Z01.818 Encounter for other preprocedural examination (principal)
CPT/HCPCS: 87635

== ENCOUNTER 2019-09-21 09:34 | Day surgery (SDC) | payer MEDICARE, OTHER ==
[2019-09-21] VITALS (7 sets, daily range): BP systolic 77–158; BP diastolic 42–71
[~2019-09-21] VITALS: Ht 162.6 cm; Wt 65.5 kg
[2019-09-21] MEDS ORDERED: LACTATED RINGERS 1,000 ML IV ONE (09:41)
[2019-09-21] MEDS ORDERED: LACTATED RINGERS 1,000 ML IV PRN (09:45)
--- NOTE | 2019-09-21 09:53 | Progress Note-Pre Operative ---
Pre-Operative Progress Note H&P Reviewed The H&P was reviewed, patient examined and no changes noted. Date Seen by Provider: Sep 21, 2019 Time Seen by Provider: :52 Date H&P Reviewed: Sep 21, 2019 Time H&P Reviewed: :52 Pre-Operative Diagnosis: incontinence of stool, chronic diarrhea, history of polyps COSME RENDON DO Sep 21, 2019 09:53
[2019-09-21] MEDS ORDERED: PROPOFOL INJECTION 0 ML IV ONE (09:56)
[2019-09-21] MEDS ORDERED: PROPOFOL INJECTION 50 ML IV ONE (10:00)
--- NOTE | 2019-09-21 10:45 | Progress Note-Post Operative ---
Post-Operative Progess Note Surgeon (s)/Trim Carpenter (s) Surgeon COSME RENDON DO Trim Carpenter: na Pre-Operative Diagnosis incontinence of stool, chronic diarrhea, history of polyps Post-Operative Diagnosis diverticulosis, transverse colon polyp Procedure & Operative Findings Date of Procedure 09/21/19 Procedure Performed/Findings colonoscopy with hot bx polypectomy, random cold biopsies Anesthesia Type per pelt salter Estimated Blood Loss Estimated blood loss (mL): none Specimens/Packing Specimens Removed transverse colon polyp, random cold biopsies COSME RENDON DO Sep 21, 2019 10:45
--- NOTE | 2019-09-21 10:46 | Discharge Inst-Simple/Standard ---
Discharge Inst-Standard Patient Instructions/Follow Up Plan of Care/Instructions/FU: 2 weeks Rahel Activity as Tolerated: Yes Discharge Diet: Regular Diet (high fiber) COSME RENDON DO Sep 21, 2019 10:46
--- NOTE | 2019-09-21 13:36 | Anesthesia-General Post-Op ---
MAC Patient Condition Mental Status/LOC: Same as Preop Cardiovascular: Satisfactory Nausea/Vomiting: Absent Respiratory: Satisfactory Pain: Controlled Complications: Absent Post Op Complications Complications None Follow Up Care/Instructions Patient Instructions None needed. Anesthesiology Discharge Order Discharge Order Patient is doing well, no complaints, stable vital signs, no apparent adverse anesthesia problems. No complications reported per nursing. BENTLEY ARMSTRONG CRNA Sep 21, 2019 13:36
--- NOTE | 2019-09-21 14:01 | OPERATIVE REPORT ---
DATE OF SERVICE: 09/21/2019 PREOPERATIVE DIAGNOSES: Chronic diarrhea, history of colon polyps and incontinence of stool. POSTOPERATIVE DIAGNOSES: Diverticulosis and transverse colon polyp. PROCEDURES PERFORMED: Colonoscopy with hot biopsy polypectomy and random cold biopsies. SURGEON: Cosme Mcginnis DO. ANESTHESIA: Per LINK TRAINER MECHANIC. ESTIMATED BLOOD LOSS: None. COMPLICATIONS: None. INDICATIONS FOR PROCEDURE: The patient is a 79-year-old female with incontinence of stool, at times chronic diarrhea and history of polyps. She understands the risks and benefits of procedure and wished to proceed with procedure. Consent was signed in the chart. DESCRIPTION OF PROCEDURE: The patient was taken to the endoscopy suite and placed in the left lateral recumbent position. Timeout was performed. Digital rectal exam was performed. Slight laxity of the sphincters, no palpable polyps, masses or ulcerations. Scope was inserted in the rectum, advanced all the way to cecum with minimal difficulty. Prep was adequate. Scope was then slowly retracted back. There were no polyps, masses or ulcerations within the cecum, ascending colon. In the transverse colon, a small polyp was present, which hot biopsy polypectomy was performed. Scope was then continued to slowly retracted back. No other polyps, masses or ulcerations through the transverse, descending and sigmoid colon. Throughout the entire colon, a moderate amount of diverticulosis was present with a heavy concentration within the sigmoid colon. Scope was then slowly retracted back into the rectum, where it was also retroflexed noting no other pathology. Scope was returned to its normal position, slowly withdrawn until completely removed. The patient tolerated the procedure well without any complications. She was taken to the recovery room in a stable condition. RECOMMENDATIONS: I would recommend a high fiber diet due to diverticulosis and incontinence of stool. This may be beneficial if high fiber diet does not help. We will consider biofeedback physical therapy. Await biopsy results. The patient does not need any further colonoscopies unless she has symptoms that would warrant doing so, which if she does he should be reevaluated at that time. Job ID: [id number] DocumentID: [id number] Dictated Date: 09/21/2019 10:49:34 Track Dresser Date: 09/21/2019 14:00:26 Dictated By: COSME MCGINNIS DO
== END 2019-09-21 11:35 | disposition home or self-care (01) ==
LOC: SDC 09:34
PROVIDERS: ATTEND Surgery
DX: D12.3 Benign neoplasm of transverse colon (principal); K52.9 Noninfective gastroenteritis and colitis, unspecified; K57.30 Diverticulosis of large intestine without perforation or abscess without bleeding; I10 Essential (primary) hypertension; N39.0 Urinary tract infection, site not specified; I73.9 Peripheral vascular disease, unspecified; F41.9 Anxiety disorder, unspecified; F32.9 Major depressive disorder, single episode, unspecified; E78.2 Mixed hyperlipidemia; M19.90 Unspecified osteoarthritis, unspecified site; M47.816 Spondylosis without myelopathy or radiculopathy, lumbar region; I25.10 Atherosclerotic heart disease of native coronary artery without angina pectoris; Z79.82 Long term (current) use of aspirin; Z79.899 Other long term (current) drug therapy; Z91.041 Radiographic dye allergy status; Z86.73 Personal history of transient ischemic attack (TIA), and cerebral infarction without residual deficits; Z86.010 Personal history of colon polyps; Z80.9 Family history of malignant neoplasm, unspecified; Z82.3 Family history of stroke

== ENCOUNTER → 2020-07-19 | Outpatient (CLI) | payer MEDICARE, OTHER ==
[~2020-07-19] MED LIST changes: +ASPI-1238 PO; -ASPI-983 PO; +ESCI20TA39 PO; -ESCI20TA45 PO; -PANT40TA3 PO; +PANT40TA52 PO
[2020-07-19 10:06] LABS: BASOPHILS % (AUTO) 0 % (0-10); EOSINOPHILS # (AUTO) 0.2 10^3/uL (0.0-0.3); EOSINOPHILS % (AUTO) 3 % (0-10); HEMATOCRIT 41 % (35-52); HEMOGLOBIN 13.2 g/dL (11.5-16.0); LYMPHOCYTES # (AUTO) 1.6 10^3/uL (1.0-4.0); LYMPHOCYTES % (AUTO) 28 % (12-44); MEAN CORPUSCULAR HEMOGLOBIN 31 pg (25-34); MEAN CORPUSCULAR HGB CONC 32 g/dL (32-36); MEAN CORPUSCULAR VOLUME 96 fL (80-99); MEAN PLATELET VOLUME 8.7 fL (9.0-12.2); MONOCYTES # (AUTO) 0.7 10^3/uL (0.0-1.0); MONOCYTES % (AUTO) 12 % (0-12); NEUTROPHILS # (AUTO) 3.2 10^3/uL (1.8-7.8); NEUTROPHILS % (AUTO) 57 % (42-75); PLATELET COUNT 212 10^3/uL (130-400); WHITE BLOOD COUNT 5.7 10^3/uL (4.3-11.0)
[2020-07-19 10:29] LABS: ALANINE AMINOTRANSFERASE 16 U/L (0-55); ALKALINE PHOSPHATASE 44 U/L (40-136); BILIRUBIN,TOTAL 1.8 MG/DL (0.1-1.0); BUN/CREATININE RATIO 30; CALCIUM 8.9 MG/DL (8.5-10.1); CARBON DIOXIDE 28 MMOL/L (21-32); CHLORIDE 108 MMOL/L (98-107); GFR ESTIMATED > 60; GLUCOSE 92 MG/DL (70-105); POTASSIUM 4.4 MMOL/L (3.6-5.0); SODIUM 141 MMOL/L (135-145); TOTAL PROTEIN 6.7 GM/DL (6.4-8.2)
== END ==
LOC: CARD 09:32
PROVIDERS: ATTEND Orthopaedic Surgery
DX: I10 Essential (primary) hypertension (principal); M19.90 Unspecified osteoarthritis, unspecified site; E78.00 Pure hypercholesterolemia, unspecified
CPT/HCPCS: 36415; 80053; 85025; 93005

== ENCOUNTER 2020-09-21 09:58 | Outpatient (CLI) | payer MEDICARE, OTHER ==
[~2020-09-21] VITALS: Ht 162.7 cm; Wt 59.1 kg
[2020-09-21 09:55] VITALS: BP 129/57
[2020-09-21] MEDS ORDERED: CASIRIVIMAB/IMDEVIMAB 1,200 MG in NS (IVPB) 250 ML IV ONE (10:15)
[2020-09-21] MEDS ORDERED: EPINEPHrine INJECTION 1 MG/ML AMP IM PRN (10:15)
[2020-09-21] MEDS ORDERED: diphenhydrAMINE 50 MG/ML INJ (BENADRYL) IV PRN (10:15)
[2020-09-21 11:33] VITALS: BP 130/56
== END 2020-09-21 11:50 | disposition home or self-care (01) ==
LOC: INFUSION 09:58
PROVIDERS: ATTEND Nurse Practitioner Family
DX: Z23 Encounter for immunization (principal); U07.1 COVID-19

== ENCOUNTER → 2021-01-16 | Outpatient (CLI) | payer MEDICARE, OTHER ==
--- NOTE | 2021-01-16 12:45 | Diagnostic Imaging Report ---
INDICATION: 80-year-old postmenopausal female. COMPARISON: None. FINDINGS: AP Spine L1-L4: [BMD (g/cm2): 1.579] [T-Score: 3.2] [Z-Score: 5.2] [BMD Previous: na] [BMD % Change: na] LT Hip Neck: [BMD (g/cm2): 1.110] [T-Score: 0.5] [Z-Score: 2.8] LT Hip Total: [BMD (g/cm2):1.169] [T-Score:1.3] [Z-Score: 3.4] [BMD Previous: na] [BMD % Change: na] RT Hip Neck: [BMD (g/cm2):na] [T-Score:na] [Z-Score:na] RT Hip Total: [BMD (g/cm2):na] [T-score:na] [Z-Score:na] [BMD Previous:na] [BMD % Change:na] World Health Organization criteria for BMD interpretation classify patients as Normal (T-score at or above -1.0), Osteopenic (T-score between -1.0 and -2.5) or Osteoporotic (T-score at or below -2.5). LIMITATIONS AND MODIFICATION: None. FRACTURE RISK (FRAX SCORE): The ten year probability of (%): Major Osteoporotic Fracture: [na] Hip Fracture: [na] IMPRESSION: 1. Normal bone mineral density. 2. Baseline examination. 3. See below National Osteoporosis Foundation guidelines on when to potentially initiate pharmacologic therapy. Based on the National Osteoporosis Foundation Guidelines, pharmacologic treatment should be initiated in any of the following, unless clinical conditions suggest otherwise: * Any patient with prior fragility fracture of the hip or vertebrae. A spine fracture indicates 5X risk for subsequent spine fracture and 2X risk for subsequent hip fracture. * Osteoporosis (T-score <-2.5). * Postmenopausal women and men age 50 and older with low bone mass/osteopenia (T-score between -1.0 and -2.5) by DXA and 10-year major osteoporotic fracture greater than 20% or a 10-year probability of hip fracture greater than 3%. These fracture risks are supplied above in the FRAX score, if applicable. * Clinician judgement and/or patient preferences may indicate treatment for people with 10-year fracture probabilities above or below these levels. Dictated by: Dictated on workstation # [id number]
== END ==
LOC: RAD 11:13
PROVIDERS: ATTEND Family Medicine
DX: Z13.820 Encounter for screening for osteoporosis (principal); Z78.0 Asymptomatic menopausal state
CPT/HCPCS: 77080

== ENCOUNTER → 2021-08-31 | Outpatient (CLI) | payer MEDICARE, OTHER ==
[2021-08-31 12:27] LABS: HEMATOCRIT 41 % (35-52); HEMOGLOBIN 13.6 g/dL (11.5-16.0); MEAN CORPUSCULAR HEMOGLOBIN 31 pg (25-34); MEAN CORPUSCULAR HGB CONC 33 g/dL (32-36); MEAN CORPUSCULAR VOLUME 94 fL (80-99); MEAN PLATELET VOLUME 8.9 fL (9.0-12.2); PLATELET COUNT 223 10^3/uL (130-400)
[2021-08-31 12:40] LABS: ALBUMIN 4.1 GM/DL (3.2-4.5)
[2021-08-31 12:41] LABS: CALCIUM 9.4 MG/DL (8.5-10.1)
[2021-08-31 12:42] LABS: TOTAL PROTEIN 6.7 GM/DL (6.4-8.2)
[2021-08-31 12:44] LABS: BILIRUBIN,TOTAL 1.8 MG/DL (0.1-1.0)
[2021-08-31 12:46] LABS: CREATININE SERUM 0.81 MG/DL (0.60-1.30)
== END ==
LOC: CARD 11:54
PROVIDERS: ATTEND Orthopaedic Surgery
DX: M19.90 Unspecified osteoarthritis, unspecified site (principal); I10 Essential (primary) hypertension
CPT/HCPCS: 36415; 80053; 85027

== ENCOUNTER → 2022-02-26 | Outpatient (CLI) | payer MEDICARE ==
--- NOTE | 2022-02-26 14:50 | Diagnostic Imaging Report ---
EXAMINATION: Left hip radiographs, 2 views. COMPARISON: None. HISTORY: 81-year-old female, left hip and low back pain. FINDINGS: There is severe joint space loss of the left hip with [id number] articulation. There is osteophyte formation. The left hip is not dislocated. There is no identified acute fracture. There is chondrocalcinosis. There are scattered areas of degenerative type enthesopathy. IMPRESSION: 1. End-stage arthritis of the left hip. Dictated by: Dictated on workstation # [id number]
--- NOTE | 2022-02-26 15:06 | Diagnostic Imaging Report ---
PROCEDURE: MRI lumbar spine. TECHNIQUE: Multiplanar, multisequence MRI of the lumbar spine was performed without contrast. DATE: February 26, 2022. COMPARISON: The thoracic and lumbar spine October 03, 2012. INDICATION: 81-year-old female, chronic low back pain. FINDINGS: There is a thoracolumbar dextroscoliosis. There is a lower lumbosacral levocurvature. There is no evidence of a diffuse marrow infiltrating or replacing process. There is no identified acute compression deformity or fracture. There is no identified focal concerning bone lesion. The visualized cord and conus medullaris is unremarkable and terminates at the L1-L2. level. There is mild disc height loss at T10-T11 with mild endplate degenerative related changes. Moderate disc height loss at T11-T12 with endplate degenerative related changes. There is severe disc height loss and partial ankylosis at T12-L1. There is mild disc loss at L1-L2. There is moderate to severe disc height loss at L2-L3 and L3-L4 as well as at L4-L5 and L5-S1. There are additional endplate degenerative related changes of the lumbar spine. There is a diffuse disc bulge at T10-T11 with mild spinal stenosis and no high-grade foraminal narrowing. There is mild diffuse disc bulge at T11-T12 without high-grade spinal or foraminal narrowing. There is a T2 hyperintense right renal lesion not well characterized on noncontrast MRI. L1-L2: There is no disc bulge. There are bilateral facet degenerative changes. There is no foraminal narrowing. There is no spinal canal stenosis. L2-L3: There is diffuse disc bulge. There are bilateral facet degenerative changes with mild ligamentum flavum hypertrophy. There is mild bilateral foraminal narrowing. There is moderate to severe spinal canal stenosis. L3-L4: There is mild diffuse disc bulge. There are right greater than left facet degenerative changes. There is no high-grade foraminal narrowing. There is no spinal canal stenosis. L4-L5: There is mild diffuse disc bulge. There are right greater than left facet degenerative changes. There is mild right foraminal narrowing. There is no spinal canal stenosis. L5-S1: There is diffuse disc bulge eccentric to the right. There are right greater than left facet degenerative changes. There is severe right foraminal narrowing. There is no spinal canal stenosis. IMPRESSION: 1. Scoliosis with multilevel degenerative changes of the thoracic and lumbar spine as described level by level above. 2. No identified acute compression deformity, fracture, or focal concerning bone lesion. Dictated by: Dictated on workstation # [id number]
--- NOTE | 2022-02-26 15:10 | Diagnostic Imaging Report ---
INDICATION: Left hip and back pain. COMPARISON: MRI dated 02/26/2022. FINDINGS: Multiple frontal and lateral radiographic views of the lumbar spine were obtained. Flexion-extension views were also obtained in the lateral projection. Evaluation of static alignment shows mild to moderate dextroscoliotic deformity epicentered at the L1 level. There is also mild grade 1 retrolisthesis at L2-L3. Flexion and extension views show no abnormal translation. Vertebral body heights are maintained. There is no convincing evidence of acute fracture. There are moderate multilevel degenerative changes consistent with intervertebral disc height loss with endplate osteophyte formations. Included small bowel loops are nondistended. Note is made of moderate calcified aortic atherosclerosis. IMPRESSION: 1. Moderate multilevel degenerative changes of the lumbar spine as described above. 2. No acute fracture or dislocation. Dictated by: Dictated on workstation # [id number]
== END ==
LOC: RAD 12:55
PROVIDERS: ATTEND Pain Medicine Interventional Pain Medicine
DX: M41.86 Other forms of scoliosis, lumbar region (principal); M47.814 Spondylosis without myelopathy or radiculopathy, thoracic region; M47.816 Spondylosis without myelopathy or radiculopathy, lumbar region; M43.16 Spondylolisthesis, lumbar region; I70.0 Atherosclerosis of aorta; M16.12 Unilateral primary osteoarthritis, left hip; M41.85 Other forms of scoliosis, thoracolumbar region; M51.24 Other intervertebral disc displacement, thoracic region; M48.04 Spinal stenosis, thoracic region; M51.26 Other intervertebral disc displacement, lumbar region; M51.27 Other intervertebral disc displacement, lumbosacral region
CPT/HCPCS: 72110; 72148; 73502